=== PATIENT | male | born 1950 | race Caucasian/White ===

== ENCOUNTER 2025-01-29 09:24 | Outpatient (CLI) | payer MEDICARE | END 2025-01-29 09:25 | disposition home or self-care (01) | LOC: CSHCT 09:24 | PROVIDERS: ATTEND Family Medicine | DX: Z12.2 Encounter for screening for malignant neoplasm of respiratory organs (principal); Z87.891 Personal history of nicotine dependence; Z80.1 Family history of malignant neoplasm of trachea, bronchus and lung | CPT/HCPCS: 71271 ==